=== PATIENT | female | born 1985 | race African-American/Black ===

== ENCOUNTER 2017-03-05 19:09 | Emergency (ER) | payer OTHER ==
[~2017-03-05] VITALS: Ht 167.6 cm; Wt 93.0 kg
[2017-03-05 20:53] LABS: URINE SOURCE CLEAN CATCH
[2017-03-05 20:56] LABS: URINE APPEARANCE CLEAR; URINE BILIRUBIN NEG (NEG); URINE BLOOD TRACE-LYSED (NEG); URINE COLOR YELLOW; URINE GLUCOSE NEG (NORM); URINE KETONE 1+ (NEG); URINE LEUKOCYTE ESTERASE NEG (NEG); URINE NITRATE NEG (NEG); URINE PROTEIN NEG (NEG)
[2017-03-05 20:57] LABS: MICRO INDICATED? YES
[2017-03-05 20:58] LABS: CULTURE INDICATED? NO; URINE BACTERIA NEG (NEG); URINE RBC NEG /[HPF] (0-2); URINE WBC NEG /[HPF] (0-5)
[2017-03-05 20:59] LABS: URINE MUCUS PRESENT; URINE SQUAMOUS EPITHELIAL CELL FEW /[HPF]
== END 2017-03-05 21:53 | disposition home or self-care (01) ==
LOC: SED 19:09
PROVIDERS: Physician Assistant
DX: K21.9 Gastro-esophageal reflux disease without esophagitis (principal); F17.210 Nicotine dependence, cigarettes, uncomplicated
CPT/HCPCS: 81003; 84703; 99284